=== PATIENT | female | born 1985 ===

== ENCOUNTER 2018-03-08 13:05 | Inpatient (IN) | payer OTHER ==
[2018-03-08] MEDS ORDERED: LACTATED RINGERS 1,000 ML IV SCH (13:15)
[2018-03-08] MEDS ORDERED: CITRIC ACID-SODIUM CITRATE 15 ML CUP PO ONE (13:15)
[2018-03-08] MEDS ORDERED: ceFAZolin IN SWFI 2 GM/20 ML SYRINGE IVP ONE (13:43)
[2018-03-08 13:51] LABS: Basophils % (A) 0 %; Eosinophils # (A) 0.1 k/uL (0-0.7); Eosinophils % (A) 1 %; HCT 32.4 % (34.0-46.0); Lymphocytes # (A) 1.6 k/uL (1.0-4.8); Lymphocytes % (A) 19 %; MCH 29.3 pg (25.0-35.0); MCV 86.1 fL (80.0-100.0); Mean Platelet Volume 8.7; Monocytes # (A) 0.4 k/uL (0-1.0); Monocytes % (A) 5 %; Neutrophils # (A) 6.1 k/uL (1.3-7.7); Neutrophils % (A) 72 %; Platelet Count 213 k/uL (150-450); RBC 3.77 m/uL (3.80-5.40); RDW 14.6 % (11.5-15.5); WBC 8.5 k/uL (3.8-10.6)
[2018-03-08 13:59] VITALS: BMI 34.3
[2018-03-08 14:46] LABS: Appearance,Urine Cloudy (Clear); Bacteria,Urine Rare /hpf; Bilirubin,Urine Negative (Negative); Blood,Urine Negative (Negative); Color,Urine Light Yellow; Glucose,Urine (UA) Negative (Negative); Ketones,Urine Negative (Negative); Leukocyte Esterase,Urine Large (Negative); Mucus,Urine Rare /hpf; Nitrite,Urine Negative (Negative); Protein,Urine Negative (Negative); RBC,Urine 1 /hpf (0-5); Specific Gravity,Urine 1.006 (1.001-1.035); Squamous Epithelial Cell,Urine 3 /hpf (0-4); Urobilinogen,Urine <2.0 mg/dL (<2.0); WBC,Urine 3 /hpf (0-5)
[2018-03-08 14:55] LABS: Amphetamine Screen,Urine Not Detected (NotDetected); Barbiturate Screen,Urine Not Detected (NotDetected); Benzodiazepines Screen,Urine Not Detected (NotDetected); Cocaine Screen,Urine Not Detected (NotDetected); Methadone Screen, Urine Not Detected (NotDetected); Opiate Screen,Urine Not Detected (NotDetected); Oxycodone Screen, Urine Not Detected (NotDetected); Phencyclidine Screen,Urine Not Detected (NotDetected); Tricyclic Antidepressant,Urine Not Detected (NotDetected); Urn Cannabinoid Scrn Not Detected (NotDetected)
[2018-03-08] MEDS ORDERED: ePHEDrine SULFATE/0.9% NACL/PF 50 MG/5 ML SYRINGE IV ONE (17:20)
[2018-03-08] MEDS ORDERED: NALBUPHINE 10 MG/ML VIAL (10ML MDV) ONE (17:20)
[2018-03-08] MEDS ORDERED: DEXAMETHASONE SOD PHOS (MDV) 100 MG/10 ML VIAL ONE (17:20)
[2018-03-08] MEDS ORDERED: MORPHINE SULFATE (PF) 0.3 MG/0.3 ML SYR ONE (17:20)
[2018-03-08] MEDS ORDERED: OXYTOCIN 10 UNIT/ML 1 ML VIAL ONE (17:20)
[2018-03-08] MEDS ORDERED: PHENYLEPHRINE-0.9% NACL SYG 1 MG/10 ML SYRINGE ONE (17:20)
[2018-03-08] MEDS ORDERED: ONDANSETRON 4 MG/2 ML VIAL ONE (17:20)
[2018-03-08] MEDS ORDERED: ONDANSETRON 4 MG/2 ML VIAL IVP PRN (18:19)
[2018-03-08] MEDS ORDERED: diphenhydrAMINE 25 MG CAP PO PRN (18:19)
[2018-03-08] MEDS ORDERED: diphenhydrAMINE 50 MG/ML 1 ML VIAL IVP PRN ×2 (18:19)
[2018-03-08] MEDS ORDERED: diphenhydrAMINE 50 MG CAP PO PRN (18:19)
[2018-03-08] MEDS ORDERED: ACETAMINOPHEN TAB 325 MG TAB PO PRN (18:19)
[2018-03-08] MEDS ORDERED: ZOLPIDEM 5 MG TAB PO PRN (18:19)
[2018-03-08] MEDS ORDERED: METOCLOPRAMIDE 5 MG/ML 2 ML VIAL IVP PRN (18:19)
[2018-03-08] MEDS ORDERED: ACETAMINOPHEN IV (For NPO) 1,000 MG in EMPTY BAG 1 BAG IVPB ONE (18:19)
[2018-03-08] MEDS ORDERED: HYDROcodone/APAP 5-325MG 1 EACH TAB PO PRN (18:19)
[2018-03-08] MEDS ORDERED: NALOXONE 0.4 MG/ML 1 ML VIAL IV PRN (18:19)
[2018-03-08] MEDS ORDERED: IBUPROFEN IV 800 MG in SODIUM CHLORIDE 0.9% 250 ML IV ONE (18:21)
--- NOTE | 2018-03-08 18:26 | P.HPOB ---
History of Present Illness H&P Date: 03/08/18 Chief Complaint: IUP at 36-2/7 weeks, oligohydramnios, breech This is a 32-year-old 2 para 1001 that was seen in the office today for her first visit and noted to be 36 weeks and 2/7 days. Patient's amniotic fluid index was noted to be 4. Femur length was confirmed, consistent with gestational age of 37 weeks. Patient had no care prior to this appointment. On blood work blood type of O+ was noted once she was admitted to the hospital GBS was unknown has limited care. Patient states she was noting good movement and denied contractions. On further questioning patient notes she was taking oral contraceptive pills and did not know she was . Review of Systems Constitutional: Denies chills, Denies fatigue, Denies fever Ears, nose, mouth and throat: Denies headache Cardiovascular: Reports leg edema Respiratory: Denies cough, Denies dyspnea Gastrointestinal: Denies constipation, Denies diarrhea, Denies nausea, Denies vomiting Genitourinary: Reports Past Medical History Past Medical History: No Reported History History of Any Multi-Drug Resistant Organisms: None Reported Past Surgical History: No Surgical Hx Reported Past Anesthesia/Blood Transfusion Reactions: No Reported Reaction Past Psychological History: No Psychological Hx Reported Smoking Status: Never smoker Past Drug Use History: None Reported - Past Family History Mother Family Medical History: No Reported History Medications and Allergies Allergies Allergy/AdvReac Type Severity Reaction Status Date / Time lidocaine Allergy Vomiting Verified 03/08/18 13:14 egg AdvReac Severe Diarrhea Verified 03/08/18 13:14 Exam Osteopathic Statement: *. No significant issues noted on an osteopathic structural exam other than those noted in the History and Physical/Consult. Vital Signs Temp Pulse Resp BP Pulse Ox 03/08/18 13:12 97.4 F L 88 18 119/77 98 Intake and Output 03/08/18 03/08/18 03/08/18 06:59 14:59 22:59 Other: Weight 90.718 kg - OBG Physical Exam Abdomen: gravid, breech infant based on US Vagina: normal for age and no lesions appreciated Uterus: enlarged Anus/Rectum: normal perianal skin Results Result Diagrams: 03/08/18 13:28 03/08/18 13:28 Abnormal Lab Results - Last 24 Hours (Table) 03/08/18 03/08/18 Range/Units 13:28 14:39 RBC 3.77 L (3.80-5.40) m/uL Hgb 11.0 L (11.4-16.0) gm/dL Hct 32.4 L (34.0-46.0) % Urine Appearance Cloudy H (Clear) Ur Leukocyte Esterase Large H (Negative) Urine Bacteria Rare H (None) /hpf Urine Mucus Rare H (None) /hpf Assessment and Plan (1) No care in current Current Visit: Yes Status: Acute Code(s): O09.30 - SUPRVSN OF PREG W INSUFFICIENT ANTENAT CARE, UNSP TRIMESTER SNOMED Code(s): 9087039734482 (2) 36 weeks gestation of Current Visit: Yes Status: Acute Code(s): Z3A.36 - 36 WEEKS GESTATION OF SNOMED Code(s): 44635776 (3) Breech presentation Current Visit: Yes Status: Acute Code(s): O32.1XX0 - MATERNAL CARE FOR BREECH PRESENTATION, UNSP SNOMED Code(s): 7034901 (4) Oligohydramnios Current Visit: Yes Status: Acute Code(s): O41.00X0 - OLIGOHYDRAMNIOS, UNSP TRIMESTER, NOT APPLICABLE OR UNSP SNOMED Code(s): 65598699 Plan: We'll admit to labor and delivery for primary low transverse section given breech presentation and oligohydramnios. is reviewed with the patient detail questions are answered and patient signed consent. Risks were reviewed with the patient detail including but not limited to infection, bleeding, damage to bladder, bowel, ureteric injury/ injury upon entering the uterus. Patient stated understanding and all questions were answered.
[2018-03-08] MEDS ORDERED: OXYTOCIN 20 UNITS/1000 ML NS 1,000 ML IV SCH (18:30)
--- NOTE | 2018-03-08 18:31 | P.OP ---
Date of Procedure: 03/08/18 Preoperative Diagnosis: IUP at 36-2/7 weeks, breech presentation, oligohydramnios, no care Postoperative Diagnosis: Same Procedure(s) Performed: Primary low transverse section Anesthesia: spinal Surgeon: Cheryl Mckeon Briefcase Sewer #1: Travis Villatoro Estimated Blood Loss (ml): 700 IV fluids (ml): 1,000 Urine output (ml): 100 Pathology: other (Placenta given no care) Condition: stable Disposition: observation Indications for Procedure: Breech presentation/oligohydramnios Operative Findings: Normal uterus tubes and ovaries were appreciated Description of Procedure: The patient was prepped and draped in the usual fashion after spinal anesthesia was administered by anesthesia. A Pfannenstiel incision was made and extended of the abdominal cavity without difficulty. The bladder peritoneum was elevated and incised and reflected distally. A 2 cm incision was made in the transverse plane of the lower uterine segment to enter the uterus at which time a scant amount of clear fluid was noted. The incision was extended in both directions using the bandage scissors. The sacrum was encountered within the field, this was brought through the hysterotomy both legs were delivered the arms were swept across the face and the head was delivered without difficulty. the cord was doubly clamped, cut, and the infant was passed for resuscitative measures with weight and Apgars 8-9 at one and 5 minutes respectively.. A segment of cord was then doubly clamped, cut, and set aside should cord gases become necessary. The placenta was delivered manually, intact, and was grossly normal with a grossly normal three-vessel cord. The uterus was exteriorized and the interior cavity of the uterus swept of any remaining placental and membranous fragments with a laparotomy sponge. The margins of the incision were grasped with allis clamps and the incision closed in 2 layers. First layer was a running locking layer of 0 vicryl from margin to margin followed by a second layer of imbricating 0 vicryl from margin to margin. Any small points of bleeding were then made hemostatic with the Bovie. Once hemostasis was achieved, the posterior cul-de-sac was suctioned with a guard and the uterine and ovarian findings are as noted above. The uterus was replaced within the abdominal cavity and the gutters swept of any remaining blood fluid or clot. The incision was again reexamined and hemostasis was noted to be excellent. Any small point of bleeding were made hemostatic with the Bovie. Once hemostasis was achieved the parietal peritoneum was loosely reapproximated. The layer of muscles were examined and made hemostatic with the Bovie. Attention was then turned to the fascia which was closed with 2 running stitches of 0 Vicryl proceeding from the lateral margins to the midpoint. The subcutaneous tissues were irrigated, made hemostatic with the Bovie, and reapproximated with a running stitch of 30 vicryl. The skin was reapproximated with 4-0 vicryl. Estimated blood loss for the case was approximately 700 mL. All sponge instrument and needle counts are correct. There were no complications. The patient tolerated the procedure well and proceeded to the recovery room in stable condition. Both mother and infant are resting comfortably in recovery. Infant girl delivered at 1739, breech presentation weight of 6 lbs. 0 oz. with Apgars of 8 and 9 at one and 5 minutes respectively.
[2018-03-08] MEDS: LACTATED RINGERS 1,000 ML IV SCH ×2 (18:37→21:05)
[2018-03-09] MEDS: SENNOSIDES-DOCUSATE SODIUM 1 EACH TAB PO SCH ×3 (00:47→21:52)
[2018-03-09 07:09] LABS: Basophils % (A) 0 %; Eosinophils % (A) 0 %; HCT 24.6 % (34.0-46.0); Lymphocytes # (A) 1.9 k/uL (1.0-4.8); Lymphocytes % (A) 14 %; MCH 28.9 pg (25.0-35.0); MCHC 33.1 g/dL (31.0-37.0); MCV 87.4 fL (80.0-100.0); Mean Platelet Volume 8.6; Monocytes # (A) 0.6 k/uL (0-1.0); Monocytes % (A) 4 %; Neutrophils # (A) 11.4 k/uL (1.3-7.7); Neutrophils % (A) 80 %; Platelet Count 192 k/uL (150-450); RBC 2.82 m/uL (3.80-5.40); RDW 14.6 % (11.5-15.5); WBC 14.2 k/uL (3.8-10.6)
[2018-03-09 07:10] LABS: HGB 8.2 gm/dL (11.4-16.0)
--- NOTE | 2018-03-09 07:12 | P.PN ---
Progress Note - Text Progress Note Date: 03/09/18 32-year-old female postop day 1 section with Duramorph spinal 300 g. Patient doing well no motor or sensory deficits. And bleeding well. VAS 2-3 out of 10 in severity.
[2018-03-09] MEDS: HYDROcodone/APAP 7.5-325MG 1 EACH TAB PO PRN ×2 (09:14→16:15)
[2018-03-09 09:46] LABS: HIV 1 AB Non-Reactive (Non-Reactive); HIV AB P24 Non-Reactive (Non-Reactive); HIV P24 AG Non-Reactive (Non-Reactive)
--- NOTE | 2018-03-09 09:50 | P.PNOBGPC ---
Subjective - Subjective Principal diagnosis: POD 1 LTCS breech, oligohydramnios Interval history: Patient is doing well on this postop day #1. She is ambulating and voiding without difficulty. She states her pain is well-controlled. She is tolerating regular diet without nausea or vomiting. She is essentially without complaints this morning. Patient reports: Reports appetite normal, Reports voiding normally, Reports pain well controlled, Reports ambulating normally : doing well Objective - Vital Signs Latest vital signs: Vital Signs Temp Pulse Resp BP Pulse Ox 03/09/18 07:16 98.2 F 73 18 106/63 97 03/09/18 03:40 98.2 F 85 16 113/57 97 03/09/18 03:10 85 16 03/09/18 00:00 99 F 79 16 118/57 99 03/08/18 20:27 98.1 F 83 16 109/56 98 03/08/18 19:57 90 16 101/56 03/08/18 19:27 83 16 120/58 99 03/08/18 19:12 73 16 03/08/18 18:57 97 16 107/60 97 03/08/18 18:45 97.1 F L 67 18 108/55 97 03/08/18 18:30 97.6 F 79 18 115/59 97 03/08/18 18:15 97.2 F L 68 18 114/55 97 03/08/18 13:12 97.4 F L 88 18 119/77 98 Intake and Output 03/08/18 03/09/18 03/09/18 22:59 06:59 14:59 Output Total 900 2050 Balance -900 -2050 Output: Urine 200 2050 Uretheral (Echeverria) 800 Estimated Blood Loss 700 Other: Voiding Method Indwelling Catheter - Exam Extremities: Present: normal Abdomen: Present: normal appearance, soft Incision: Present: normal, dry, intact Uterus: Present: firm - Labs Labs: Abnormal Lab Results - Last 24 Hours (Table) 03/08/18 03/08/18 03/09/18 Range/Units 13:28 14:39 06:34 WBC 14.2 H (3.8-10.6) k/uL RBC 3.77 L 2.82 L (3.80-5.40) m/uL Hgb 11.0 L 8.2 L D (11.4-16.0) gm/dL Hct 32.4 L 24.6 L (34.0-46.0) % Neutrophils # 11.4 H (1.3-7.7) k/uL Urine Appearance Cloudy H (Clear) Ur Leukocyte Esterase Large H (Negative) Urine Bacteria Rare H (None) /hpf Urine Mucus Rare H (None) /hpf Assessment and Plan (1) No care in current Current Visit: Yes Status: Acute Code(s): O09.30 - SUPRVSN OF PREG W INSUFFICIENT ANTENAT CARE, UNSP TRIMESTER SNOMED Code(s): 3207970809537 (2) 36 weeks gestation of Current Visit: Yes Status: Acute Code(s): Z3A.36 - 36 WEEKS GESTATION OF SNOMED Code(s): 89401098 (3) Breech presentation Current Visit: Yes Status: Acute Code(s): O32.1XX0 - MATERNAL CARE FOR BREECH PRESENTATION, UNSP SNOMED Code(s): 8320347 (4) Oligohydramnios Current Visit: Yes Status: Acute Code(s): O41.00X0 - OLIGOHYDRAMNIOS, UNSP TRIMESTER, NOT APPLICABLE OR UNSP SNOMED Code(s): 31014915 (5) Acute blood loss anemia Current Visit: Yes Status: Acute Code(s): D62 - ACUTE POSTHEMORRHAGIC ANEMIA SNOMED Code(s): 436848243 Plan: We'll continue routine postoperative care today and anticipate discharge home tomorrow.
[2018-03-09] MEDS: SIMETHICONE 80 MG CHEWABLE PO SCH ×2 (11:08→16:16)
[2018-03-09] MEDS: LACTATED RINGERS 1,000 ML IV SCH (11:08)
[2018-03-09 15:13] LABS: Hemoglobin A1C 5.1 % (4.0-6.0)
[2018-03-09 15:58] LABS: C. trachomatis,PCR Negative (Neg,Equiv); Chlamydia trachomatis Source Urine; N. gonorrhoeae,PCR Negative (Neg,Equiv); Neisseria Source Urine
[2018-03-09] MEDS: IBUPROFEN 600 MG TAB PO PRN (21:53)
[2018-03-10 00:45] VITALS: PULSE 78
[2018-03-10] MEDS: IBUPROFEN 600 MG TAB PO PRN (06:04)
[2018-03-10 08:20] VITALS: BP 115/69; RESP 18; TEMP 97.3
--- NOTE | 2018-03-10 08:26 | P.DS ---
Providers Date of admission: 03/08/18 13:05 Expected date of discharge: 03/10/18 Attending physician: Cheryl Mckeon - Discharge Diagnosis(es) (1) No care in current Current Visit: Yes Status: Acute (2) 36 weeks gestation of Current Visit: Yes Status: Acute (3) Breech presentation Current Visit: Yes Status: Acute (4) Oligohydramnios Current Visit: Yes Status: Acute (5) Acute blood loss anemia Current Visit: Yes Status: Acute (6) Status post section Current Visit: Yes Status: Acute Hospital Course: This is a very pleasant 32-year-old 2 para 1001 that presented to the office for her initial new OB visit. Patient initially thought she was approximately 21 weeks . On initial physical exam by my nurse practitioner she was measuring large for dates and an ultrasound was performed. Patient was noted to be 36 weeks and 3 days breech presentation with oligohydramnios, SAMIR of 4. Patient states she was unaware that she was and this happened with her prior . She had no care prior to this appointment. Patient was counseled on the need for primary section secondary to breech presentation, oligohydramnios. Patient stated understanding and was sent to labor and delivery. heart tones were noted to be reassuring and she wishes to wait for her who was proximally 4 hours away. Once the was at the hospital we proceeded with the C- section which was performed without difficulty. For further details on the C- section please see the operative report. Patient's postoperative course has been uneventful. On this postop day #2 she is ambulating and voiding without difficulty. She is using ibuprofen for pain. She is tolerating a regular diet without nausea or vomiting. She states her lochia is minimal. Of note the had a seizure-like activity event this morning. This is being transferred to [facility] for further monitoring/workup. Mom is understanding and wishes to travel with her infant. Patient Condition at Discharge: Good Plan - Discharge Summary Follow up Appointment(s)/Referral(s): Cheryl Mckeon DO [Doctor of Osteopathic Medicine] - 2 Weeks Patient Instructions/Handouts: (DC), (GEN) Activity/Diet/Wound Care/Special Instructions: No tub baths or intercourse until 6 weeks Discharge Disposition: HOME SELF-CARE
== END 2018-03-10 09:25 | disposition home or self-care (01) | DRG 787 ==
LOC: 4FBP 13:05
PROVIDERS: ADMIT Obstetrics & Gynecology Obstetrics; ATTEND Obstetrics & Gynecology Obstetrics
PROC: 10D00Z1 Extraction of Products of Conception, Low, Open Approach (ICD-10-PCS; principal; 2018-03-08 17:34)
DX: O32.1XX0 Maternal care for breech presentation, not applicable or unspecified (principal); O41.03X0 Oligohydramnios, third trimester, not applicable or unspecified; D62 Acute posthemorrhagic anemia; O99.02 Anemia complicating childbirth; Z37.0 Single live birth; Z3A.37 37 weeks gestation of pregnancy
CPT/HCPCS: 80306; 81001; 82947; 83036; 85025; 86762; 86780; 86850; 86900; 86901; 87340; 87390; 87491; 87591; 88307